=== PATIENT | female | born 1945 | race Caucasian/White ===

== ENCOUNTER → 2018-05-18 | Outpatient (REF) | payer MEDICARE, BC ==
[~2018-05-18] MED LIST: ADLT ASA LOW81 MG PO; AMITRIPTYLIN100 MG OR; AMITRIPTYLIN100 MG PO; AMOXICILLIN500 MG PO; ANTIVERT OR; ANTIVERT PO; ASPIRIN OR; BENZONATATE200 MG PO; CAL MAG ZINC PO; CALC PO; CYMBALTA60 MG PO; DILTIAZEM120 MG PO; DOXYCYCL HYC100 MG PO; DRY E-NATUR400 UNIT PO; DYAZIDE1 CAP PO; EMBRACE XX; ENALAPRIL10 MG PO; ENALAPRIL20 MG PO; FENOFIBRATE145 MG PO; FENOFIBRATE54 MG PO; FLAXSEED OIL1000 MG PO; GABAPENTIN100 MG PO; GABAPENTIN400 M2 PO; GABAPENTIN400 MG PO; GLIPIZIDE ER2.5 MG PO; GLIPIZIDE5 M1 PO; GLIPIZIDE5 MG PO; GLUCOSAMINE500 M1 PO; GLUCOTROL XL2.5 MG PO; LEVEMIR100 UNIT/M SC; LIPITOR40 MG OR; LYRICA50 MG PO; MAGNES PO; MAXZIDE-2537.5 MG/TA PO; MECLIZINE25 MG PO; MEDDOSEPAK PO; METAN1 PO; METFORMIN1000 MG PO; METFORMIN500 MG PO; METFORMIN850 MG PO; METOPROL TAR25 M1 PO; METOPROL TAR50 MG PO; METOPROLOL TART50 MG PO; MOBIC15 MG PO; MSM500 MG PO; MULTI VITAMN PO; OMEGA 31000 MG PO; OMEGA 31200 MG PO; OMEPRAZOLE20 MG OR; OMEPRAZOLE20 MG PO; PRILOSEC OTC PO; PRILOSEC20 MG/CAP PO; REGLAN10 MG OR; SIMVASTATIN40 MG PO; SUPER B COM2 PO; VASOTEC20 MG OR; VITAMIN C1000 MG PO; VITAMIN D1000 UNIT PO; VITAMIN D400 UNI2 PO; ZETIA10 MG OR; ZITHROMAX250 MG PO; [UNRECOGNIZED DRUG - OTHER] OR
[2018-05-18 08:12] LABS: HEMATOCRIT 42.6 % (37.0-47.0); HEMOGLOBIN 14.5 g/dl (12.0-16.0); MEAN CELL VOLUME 94.9 fL CALC (80.0-100.0); MEAN CORPUSCULAR HGB 32.3 pG CALC (26.0-32.0); RED BLOOD COUNT 4.49 mill/uL (4.20-5.60); RED CELL DISTRI WIDTH 11.9 % (11.5-15.5)
[2018-05-18 09:11] LABS: ALBUMIN 4.4 g/dL (3.2-5.0); BILIRUBIN, TOTAL 1.4 mg/dL (0.0-1.4); CHOLESTEROL HDL RATIO 3.5 (<4.4 (CALC)); CREATININE 1.5 mg/dL (0.5-1.0); POTASSIUM 4.2 mmol/l (3.5-5.1); TOTAL PROTEIN 7.9 g/dL (6.3-8.2)
== END | disposition home or self-care (01) ==
LOC: LAB 07:10
PROVIDERS: ATTEND Internal Medicine
DX: D47.2 Monoclonal gammopathy (principal); E11.21 Type 2 diabetes mellitus with diabetic nephropathy; I10 Essential (primary) hypertension; I25.10 Atherosclerotic heart disease of native coronary artery without angina pectoris; M79.672 Pain in left foot

== ENCOUNTER 2018-12-22 08:45 | Emergency (ER) | payer MEDICARE, BC ==
[~2018-12-22] VITALS: Ht 170.2 cm; Wt 87.4 kg
[2018-12-22] MEDS ORDERED: PRILOSEC20 MG/CAP PO (09:10)
[2018-12-22] MEDS ORDERED: BYDUREON B2 MG/0.85 SC (09:12)
[2018-12-22] MEDS ORDERED: MAXZIDE-2537.5 MG/TA PO (09:13)
[2018-12-22] MEDS ORDERED: LIPITOR20 MG PO (09:14)
[2018-12-22] MEDS ORDERED: COQ1050 MG PO (09:15)
[2018-12-22 09:21] LABS: HEMATOCRIT 43.1 % (37.0-47.0); HEMOGLOBIN 14.4 g/dl (12.0-16.0); IMMATURE GRANULOCYTES 0.1 % (0.0-5.0); MEAN CELL VOLUME 94.5 fL CALC (80.0-100.0); MEAN CORPUSCULAR HGB 31.6 pG CALC (26.0-32.0); MEAN CORPUSCULAR HGB CONC 33.4 g/L CALC (32.0-36.0); PLATELET COUNT 313 thou/uL (130-400); RED BLOOD COUNT 4.56 mill/uL (4.20-5.60); RED CELL DISTRI WIDTH 12.1 % (11.5-15.5)
[2018-12-22 09:23] LABS: MANUAL DIFFERENTIAL YES
[2018-12-22 09:27] LABS: URINE BILIRUBIN - DIPSTICK NEGATIVE (NEGATIVE); URINE BLOOD DIPSTICK NEGATIVE (NEGATIVE); URINE COLOR YELLOW; URINE GLUCOSE - DIPSTICK NEGATIVE (NEGATIVE); URINE KETONE NEGATIVE (NEGATIVE); URINE LEUK ESTERASE NEGATIVE (NEGATIVE); URINE NITRITE - DIPSTICK NEGATIVE (Negative); URINE PROTEIN - DIPSTICK NEGATIVE (NEG-TRACE); URINE UROBILINOGEN - DIPSTICK 0.2 E.U./dL (0.2)
[2018-12-22 09:37] LABS: ALBUMIN 4.7 g/dL (3.2-5.0); BILIRUBIN, TOTAL 1.2 mg/dL (0.0-1.4); CREATININE 1.5 mg/dL (0.5-1.0); TOTAL PROTEIN 8.8 g/dL (6.3-8.2)
[2018-12-22] MEDS ORDERED: TRAMADOL HYDROC50 MG PO (10:39)
[2018-12-22] MEDS ORDERED: CYCLOBENZAPR5 MG PO (10:41)
[2018-12-22 10:59] VITALS: BP 152/80
== END 2018-12-22 11:10 | disposition home or self-care (01) ==
LOC: ED 08:45
PROVIDERS: Family Medicine
DX: M62.830 Muscle spasm of back (principal); I10 Essential (primary) hypertension; E11.9 Type 2 diabetes mellitus without complications; C91.10 Chronic lymphocytic leukemia of B-cell type not having achieved remission; Z79.4 Long term (current) use of insulin

== ENCOUNTER 2024-06-08 13:35 | Emergency (ER) | payer MEDICARE, BC ==
[~2024-06-08] VITALS: Ht 170.2 cm; Wt 81.0 kg
[~2024-06-08 13:35] MED LIST changes: +BYDUREON B2 MG/0.85 SC; +COQ1050 MG PO; +CYCLOBENZAPR5 MG PO; +LIPITOR20 MG PO; +TRAMADOL HYDROC50 MG PO
[2024-06-08 14:10] VITALS: BP 121/70
[2024-06-08] MEDS ORDERED: DOXYCYC MONO100 M3 PO (14:14)
[2024-06-08 14:15] VITALS: BP 114/57
[2024-06-08 14:30] VITALS: BP 137/70
[2024-06-08 14:34] VITALS: BP 137/70
== END 2024-06-08 14:36 | disposition home or self-care (01) ==
LOC: ED 13:35
DX: L03.115 Cellulitis of right lower limb (principal); I10 Essential (primary) hypertension; E11.9 Type 2 diabetes mellitus without complications; C91.10 Chronic lymphocytic leukemia of B-cell type not having achieved remission; E78.00 Pure hypercholesterolemia, unspecified; F32.A Depression, unspecified; Z85.3 Personal history of malignant neoplasm of breast; Z79.4 Long term (current) use of insulin